=== PATIENT | male | born 1985 | race Two or more races ===

== ENCOUNTER 2018-07-25 10:42 | Emergency (ER) | payer SELFPAY ==
[~2018-07-25] VITALS: Ht 170.2 cm; Wt 74.8 kg
--- NOTE | 2018-07-25 10:50 | NUR ---
pt bibra to er bed 14. per report, pt was found at a bathroom of [facility] sleeping. pt upon arrival is arousable and verbally responsive admits to saboxone use. pt easily goes back to sleep. placed on monitor. stable vitals. awaiting md amaya.
--- NOTE | 2018-07-25 10:52 | NUR ---
dr mixon at bedside for eval
--- NOTE | 2018-07-25 11:07 | NUR ---
Pt refused cxr
--- NOTE | 2018-07-25 11:42 | NUR ---
bg 100. ermd aware
[2018-07-25 12:45] VITALS: BP 122/71
--- NOTE | 2018-07-25 12:47 | NUR ---
pt sleeping in bed. on monitor. easily arousable. on monitor. stable vitals.
--- NOTE | 2018-07-25 13:57 | NUR ---
pt eloped from ED.
== END 2018-07-25 13:58 | disposition left against medical advice (07) ==
LOC: ER 10:45
DX: T40.691A Poisoning by other narcotics, accidental (unintentional), initial encounter (principal); Y92.89 Other specified places as the place of occurrence of the external cause
CPT/HCPCS: 82962-TC